=== PATIENT | female | born 1995 | race African-American/Black ===

== ENCOUNTER 2022-06-17 09:56 | Outpatient (CLI) | payer OTHER | END 2022-06-17 09:57 | disposition home or self-care (01) | LOC: CSHLAB 09:56 | PROVIDERS: ATTEND Family Medicine | DX: Z20.822 Contact with and (suspected) exposure to COVID-19 (principal) | CPT/HCPCS: 87811 ==

== ENCOUNTER 2022-06-20 19:30 | Inpatient (IN) | payer OTHER ==
[2022-06-20 22:15] VITALS: BMI 26.6
[2022-06-20] MEDS ORDERED: Promethazine HCl 25 MG/ML VIAL IM PRN (23:20)
[2022-06-20] MEDS ORDERED: Ondansetron PF 4 MG/2 ML Vial IVP PRN (23:20)
[2022-06-20] MEDS ORDERED: Acetaminophen 500 MG TAB PO PRN (23:20)
[2022-06-20] MEDS ORDERED: Lidocaine 1% (PF) 30 ML VIAL SC PRN (23:20)
[2022-06-20] MEDS ORDERED: hydrALAZINE 20 MG/ML VIAL SLOW IVP PRN (23:20)
[2022-06-20] MEDS ORDERED: Butorphanol Tartrate 1 MG/ML VIAL SLOW IVP PRN (23:20)
[2022-06-20] MEDS ORDERED: Diphenoxylate HCl/Atropine Tablet PO PRN ×2 (23:29)
[2022-06-20] MEDS ORDERED: Carboprost 250 MCG/ML AMP IM PRN (23:29)
[2022-06-20] MEDS ORDERED: Misoprostol 200 MCG TAB PR PRN (23:29)
[2022-06-20] MEDS ORDERED: Ibuprofen 800 MG TAB PO PRN (23:29)
[2022-06-20] MEDS ORDERED: Methylergonovine 0.2 MG/ML VIAL IM PRN (23:29)
[2022-06-20] MEDS ORDERED: HYDROcodone/Acetaminophen 5/325 mg Tablet PO PRN ×2 (23:29)
[2022-06-20] MEDS ORDERED: Misoprostol 100 MCG TAB VAG SCH (23:30)
[2022-06-20] MEDS ORDERED: NS w/ Oxytocin 30 units 500 ML IV SCH ×2 (23:30→23:59)
[2022-06-20] MEDS ORDERED: Lactated Ringer's 1,000 ML IV SCH (23:30)
[2022-06-20 23:51] LABS: Hemoglobin 9.3 g/dL (12.0-15.5); Mean Corpuscular HGB CONC 32.2 g/dL (32.0-36.0); Mean Corpuscular Hemoglobin 23.5 pg (27.0-33.0); Mean Corpuscular Volume 73.2 fl (81.6-98.3); Mean Platelet Volume 9.9 fl (7.4-10.4); Platelet Count 334 10x3/uL (150-450); RBC Distribution Width 16.3 % (11.5-14.5); Red Blood Cell (RBC) Count 3.95 10x6/uL (3.90-5.03); White Blood Cell (WBC) Count 7.7 10x3/uL (3.5-10.5)
[2022-06-21 00:23] LABS: HIV (1/2) Antibody/Antigen Non-Reactive (NonReactive); HIV 1/2 INDEX 0.07 S/CO (<1.00); Hep B Surf Ag Non-Reactive S/CO (NonReactive)
[2022-06-21 00:49] LABS: HBSAg Index 0.16 S/CO (0-0.99)
[2022-06-21 02:21] LABS: Syphilis Antibody Index 14.26 S/CO (<1.00 Non-Reactive)
[2022-06-21 02:31] LABS: Syphilis Antibody INDETERMINATE (Nonreactive)
[2022-06-21] MEDS: Oxytocin 10 UNITS/ML VIAL ONE ×2 (04:50→08:37)
[2022-06-21] MEDS: Morphine 4 MG/ML VIAL ONE ×2 (04:55→08:37)
[2022-06-21] MEDS ORDERED: Milk Of Magnesia 30 ML UDCUP PO PRN (07:24)
[2022-06-21] MEDS ORDERED: NS w/ Oxytocin 30 units 500 ML IV SCH (07:24)
[2022-06-21] MEDS ORDERED: Misoprostol 200 MCG TAB VAG PRN (07:24)
[2022-06-21] MEDS ORDERED: Promethazine HCl 25 MG/ML VIAL IM PRN (07:24)
[2022-06-21] MEDS ORDERED: Lanolin Ointment 7 GM TUBE TOP PRN (07:24)
[2022-06-21] MEDS ORDERED: Boostrix 0.5 ML (Tdap) VIAL IM ONE (07:24)
[2022-06-21] MEDS ORDERED: Bisacodyl 10 MG SUPP PR PRN (07:24)
[2022-06-21] MEDS ORDERED: Methylergonovine 0.2 MG/ML VIAL IM PRN (07:24)
[2022-06-21] MEDS ORDERED: hydrALAZINE 20 MG/ML VIAL SLOW IVP PRN (07:24)
[2022-06-21] MEDS ORDERED: Ondansetron PF 4 MG/2 ML Vial IVP PRN (07:24)
[2022-06-21] MEDS: Ferrous Sulfate 325 MG TAB PO SCH ×2 (08:38→13:45)
[2022-06-21] MEDS: Ibuprofen 800 MG TAB PO SCH ×3 (08:38→21:32)
[2022-06-21] MEDS: Docusate 100 MG CAP PO SCH ×2 (08:51→21:32)
[2022-06-21] MEDS: Prenatal Vitamin 1 TAB PO SCH (08:51)
[2022-06-21] MEDS ORDERED: Benzocaine-Menthol 82.5 ML CAN TOP PRN (09:54)
[2022-06-21] MEDS ORDERED: HYDROcodone/Acetaminophen 7.5/325 mg Tablet PO SCH (19:00)
[2022-06-22] MEDS: Ibuprofen 800 MG TAB PO SCH ×3 (05:14→21:12)
[2022-06-22 05:30] LABS: #Eosinphils 0.1 10x3/uL (0.0-0.5); #Monocytes 0.8 10x3/uL (0.0-1.1); #Neutrophils 7.9 10x3/uL (1.5-8.4); %Basophils 0.2 % (0.0-2.0); %Eosinophils 0.6 % (0.0-6.0); %Lymphocytes 25.1 % (18.0-47.0); %Monocytes 6.6 % (0.0-10.0); %Neutrophils 66.4 % (40.0-75.0); Hemoglobin 8.2 g/dL (12.0-15.5); Mean Corpuscular HGB CONC 31.5 g/dL (32.0-36.0); Mean Corpuscular Hemoglobin 23.4 pg (27.0-33.0); Mean Corpuscular Volume 74.1 fl (81.6-98.3); Mean Platelet Volume 10.3 fl (7.4-10.4); Platelet Count 299 10x3/uL (150-450); RBC Distribution Width 16.4 % (11.5-14.5); Red Blood Cell (RBC) Count 3.51 10x6/uL (3.90-5.03); White Blood Cell (WBC) Count 11.9 10x3/uL (3.5-10.5)
[2022-06-22] MEDS: Prenatal Vitamin 1 TAB PO SCH (08:27)
[2022-06-22] MEDS: Ferrous Sulfate 325 MG TAB PO SCH ×2 (08:27→18:01)
[2022-06-22] MEDS: Docusate 100 MG CAP PO SCH ×2 (08:27→21:12)
[2022-06-22] MEDS ORDERED: Witch Hazel-Glycerin 1 EACH JAR TOP PRN (14:04)
[2022-06-23 07:55] VITALS: BP 110/60; TEMP 98.2
[2022-06-23] MEDS: Prenatal Vitamin 1 TAB PO SCH (08:31)
[2022-06-23] MEDS: Ferrous Sulfate 325 MG TAB PO SCH (08:31)
[2022-06-23] MEDS: Docusate 100 MG CAP PO SCH (08:31)
== END 2022-06-23 11:35 | disposition home or self-care (01) | DRG 806 ==
LOC: CSHLD 21:12 → CSHPP 06-21 08:21
PROVIDERS: ADMIT Student in an Organized Health Care Education/Training Program; ATTEND Student in an Organized Health Care Education/Training Program
PROC: 10E0XZZ Delivery of Products of Conception, External Approach (ICD-10-PCS; principal; 2022-06-21)
DX: O24.420 Gestational diabetes mellitus in childbirth, diet controlled (principal); O87.2 Hemorrhoids in the puerperium; Z37.0 Single live birth; Z3A.39 39 weeks gestation of pregnancy; D50.9 Iron deficiency anemia, unspecified; O99.02 Anemia complicating childbirth; Z28.21 Immunization not carried out because of patient refusal; F17.210 Nicotine dependence, cigarettes, uncomplicated; O99.334 Smoking (tobacco) complicating childbirth; Z71.6 Tobacco abuse counseling; F39 Unspecified mood [affective] disorder; O99.344 Other mental disorders complicating childbirth; Z20.822 Contact with and (suspected) exposure to COVID-19
CPT/HCPCS: 36415; 36416; 85025; 85027; 86593; 86780; 86850; 86900; 86901; 87340; 87389; 88307; J2270; J2590; J7120

== ENCOUNTER 2023-09-24 05:57 | Emergency (ER) | payer OTHER, SELFPAY ==
[2023-09-24 07:49] LABS: Acetaminophen Less than 10 mcg/mL (10.0-30.0); Alcohol Less than 10.0 mg/dL (Less than 10); Salicylate Less than 8.0 mg/dL (15.0-30.0)
[2023-09-24 07:56] LABS: Bilirubin Neg (Negative); Blood, Urine 10 (Negative); Clarity Slightly Cloudy (Clear); Glucose, Urine (Dipstick) Normal (Negative); Ketone, Urine Negative (Negative); Leukocyte 100 (Negative); Nitrite Negative (Negative); Protein, Urine (Dipstick) 30 mg/dl (Neg-Trace); Specific Gravity, Urine 1.015 (1.005-1.030)
[2023-09-24 08:24] LABS: Pregnancy Test - Urine (BHCG) POSITIVE (Negative); Pregu Control Background? CLEAR/WHITE (CLR/WHITE); Pregu Control Bar Appear? YES (CONTROL BAR); Specific Gravity 1.015 (1.002-1.036)
[2023-09-24 08:33] LABS: Amphetamine Not Detected (NotDetected); Barbiturates Screen Not Detected (NotDetected); Benzodiazepine Screen Not Detected (NotDetected); Cocaine Metabolite Screen Not Detected (NotDetected); Methadone Not Detected (NotDetected); Methamphetamine Not Detected (NotDetected); Opiate Screen Not Detected (NotDetected); Oxycodone Screen Not Detected (NotDetected); Phencyclidine (PCP) Not Detected (NotDetected); THC/Cannabinoid Screen Detected (NotDetected); Tricyclic Screen Not Detected (NotDetected)
[2023-09-24 08:37] LABS: Bacteria/HPF 4+ HPF (None Seen); CAUTI Indications for Culture Dysuria,urgency,freq; Mucous/LPF 3+ LPF (<2+); RBC/HPF 0-3 HPF (0-3); Squamous Epithelial 0-3 HPF (0-3); WBC/HPF 21-50 HPF (0-3)
== END 2023-09-24 09:04 | disposition home or self-care (01) ==
LOC: CSHERS 05:57
DX: Z33.1 Pregnant state, incidental (principal); F17.210 Nicotine dependence, cigarettes, uncomplicated
CPT/HCPCS: 36415; 80306; 80307; 81025; 99284

== ENCOUNTER 2023-10-10 19:54 | Emergency (ER) | payer SELFPAY ==
[2023-10-10] MEDS ORDERED: Ondansetron PF 4 MG/2 ML Vial ONE (21:15)
[2023-10-10 21:45] LABS: #Eosinphils 0.1 10x3/uL (0.0-0.5); #Monocytes 0.7 10x3/uL (0.0-1.1); #Neutrophils 5.4 10x3/uL (1.5-8.4); %Basophils 0.4 % (0.0-2.0); %Eosinophils 1.2 % (0.0-6.0); %Lymphocytes 24.2 % (18.0-47.0); %Monocytes 8.2 % (0.0-10.0); %Neutrophils 65.8 % (40.0-75.0); Hemoglobin 11.4 g/dL (12.0-15.5); Mean Corpuscular HGB CONC 33.5 g/dL (32.0-36.0); Mean Corpuscular Hemoglobin 26.3 pg (27.0-33.0); Mean Corpuscular Volume 78.3 fl (81.6-98.3); Mean Platelet Volume 9.3 fl (7.4-10.4); Platelet Count 407 10x3/uL (150-450); RBC Distribution Width 16.1 % (11.5-14.5); Red Blood Cell (RBC) Count 4.34 10x6/uL (3.90-5.03); White Blood Cell (WBC) Count 8.2 10x3/uL (3.5-10.5)
[2023-10-10 21:57] LABS: ALT (SGPT) 15 U/L (8-55); AST (SGOT) 19 U/L (5-34); Albumin 4.3 g/dL (3.5-5.0); Alkaline Phosphatase 39 U/L (40-110); Anion Gap 14 mmol/L (10-20); BUN (Urea Nitrogen) 7 mg/dL (7.0-18.7); Bilirubin, Total 0.7 mg/dL (0.2-1.2); Calc. Creatinine Clearance 0 mL/min (70-130); Calcium 9.1 mg/dL (7.8-10.44); Carbon Dioxide 21 mmol/L (22-29); Chloride 105 mmol/L (98-107); Estimated GFR 124; Globulin 4.2 g/dL (2.4-3.5); Glucose 81 mg/dL (70-105); Potassium 3.6 mmol/L (3.5-5.1); Protein, Total 8.5 g/dL (6.0-8.3); Sodium 136 mmol/L (136-145)
== END 2023-10-10 22:40 | disposition home or self-care (01) ==
LOC: CSHERS 19:54
DX: O21.0 Mild hyperemesis gravidarum (principal); O99.331 Smoking (tobacco) complicating pregnancy, first trimester; F17.210 Nicotine dependence, cigarettes, uncomplicated; Z3A.08 8 weeks gestation of pregnancy
CPT/HCPCS: 80053; 84702; 85025; 96361; 96374; J2405

== ENCOUNTER 2024-01-25 20:04 | Emergency (ER) | payer OTHER | END 2024-01-25 21:50 | disposition home or self-care (01) | LOC: CSHERS 20:04 | DX: K08.89 Other specified disorders of teeth and supporting structures (principal); K03.81 Cracked tooth; F17.210 Nicotine dependence, cigarettes, uncomplicated | CPT/HCPCS: 40804; 99282 ==

== ENCOUNTER 2024-03-25 00:53 | Inpatient (IN) | payer OTHER ==
[2024-03-25 01:46] VITALS: BMI 25.7
[2024-03-25] MEDS ORDERED: hydrALAZINE 20 MG/ML VIAL SLOW IVP PRN (02:05)
[2024-03-25 02:07] LABS: Fetal Membranes Rupture RUPTURE DETECTED (No Rupture)
[2024-03-25] MEDS ORDERED: Misoprostol 200 MCG TAB PR PRN (02:33)
[2024-03-25] MEDS ORDERED: Diphenoxylate HCl/Atropine Tablet PO PRN (02:33)
[2024-03-25] MEDS ORDERED: Carboprost 250 MCG/ML AMP IM PRN (02:33)
[2024-03-25] MEDS ORDERED: Docusate 100 MG CAP PO PRN (02:33)
[2024-03-25] MEDS ORDERED: Methylergonovine 0.2 MG/ML VIAL IM PRN (02:33)
[2024-03-25] MEDS ORDERED: Promethazine HCl 25 MG/ML VIAL IM PRN (02:33)
[2024-03-25] MEDS ORDERED: Tranexamic Acid 1,000 MG/10 ML VIAL IVP PRN (02:33)
[2024-03-25] MEDS ORDERED: Acetaminophen 500 MG TAB PO PRN ×2 (02:33→12:22)
[2024-03-25] MEDS ORDERED: Lidocaine 1% (PF) 30 ML VIAL SC PRN (02:36)
[2024-03-25] MEDS ORDERED: Oxytocin 30 units/NS 500 ML 500 ML IV SCH (02:45)
[2024-03-25 03:32] LABS: Hematocrit 31.6 % (34.9-44.5); Hemoglobin 10.9 g/dL (12.0-15.5); Mean Corpuscular HGB CONC 34.5 g/dL (32.0-36.0); Mean Corpuscular Hemoglobin 28.5 pg (27.0-33.0); Mean Corpuscular Volume 82.5 fl (81.6-98.3); Mean Platelet Volume 9.7 fl (7.4-10.4); Platelet Count 326 10x3/uL (150-450); RBC Distribution Width 15.1 % (11.5-14.5); Red Blood Cell (RBC) Count 3.83 10x6/uL (3.90-5.03)
[2024-03-25 03:59] LABS: Glucose 77 mg/dL (70-105)
[2024-03-25 04:09] LABS: Hep B Surf Ag - L&D Non-Reactive S/CO (NonReactive)
[2024-03-25 05:40] LABS: Syphilis Antibody Index 6.46 S/CO (<1.00 Non-Reactive)
[2024-03-25 06:05] LABS: Syphilis Antibody INDETERMINATE (Nonreactive)
[2024-03-25] MEDS: Oxytocin 30 units/NS 500 ML 500 ML ONE (07:56)
[2024-03-25] MEDS: Penicillin G Potassium 5 MILL.UNITS VIAL ONE (07:56)
[2024-03-25] MEDS: Azithromycin 500 MG VIAL ONE (09:11)
[2024-03-25] MEDS: Betamet Acet/Betamet Na Ph 30 MG/5 ML VIAL ONE (09:11)
[2024-03-25] MEDS: Terbutaline Sulfate 1 MG/ML VIAL ONE (13:01)
[2024-03-25] MEDS: Ampicillin 2 GM in Sodium Chloride 0.9% 100 ML IVPB SCH (13:41)
[2024-03-25] MEDS: HumaLOG 300 UNITS/3 ML VIAL SC SCH ×3 (16:25→22:35)
[2024-03-25] MEDS: Ferrous Sulfate 325 MG TAB PO SCH (18:47)
[2024-03-26] MEDS ORDERED: Dextrose 50% Abboject 50 ML SYRINGE SLOW IVP PRN (08:19)
[2024-03-26] MEDS ORDERED: Dextrose 5% in Water 1,000 ML IV PRN (08:19)
[2024-03-26] MEDS ORDERED: Glucagon 1 MG/ML KIT IM PRN (08:19)
[2024-03-26] MEDS: HumaLOG 300 UNITS/3 ML VIAL SC PRN (11:09)
[2024-03-26 13:12] LABS: Group B Streptococcus by PCR Not Detected (NotDetected)
[2024-03-26] MEDS: HumaLOG 300 UNITS/3 ML VIAL SC SCH (17:20)
[2024-03-26 17:22] LABS: Bilirubin Neg (Negative); Blood, Urine Negative (Negative); Clarity Clear (Clear); Glucose, Urine (Dipstick) Normal (Negative); Ketone, Urine Negative (Negative); Leukocyte Negative (Negative); Nitrite Negative (Negative); Protein, Urine (Dipstick) Negative (Neg-Trace); Urobilinogen Normal mg/dL (Less than 2)
[2024-03-26 18:35] LABS: Bacteria/HPF 1+ HPF (None Seen); RBC/HPF 0-3 HPF (0-3); WBC/HPF 0-3 HPF (0-3)
[2024-03-26] MEDS: Lantus 1000 UNITS/10 ML VIAL SC SCH (22:43)
[2024-03-26] MEDS: Ondansetron PF 4 MG/2 ML Vial IVP PRN (22:44)
[2024-03-27] MEDS: HumaLOG 300 UNITS/3 ML VIAL SC SCH ×2 (07:30→09:43)
[2024-03-27] MEDS ORDERED: AMOXicillin 500 MG CAP PO SCH (09:00)
[2024-03-27] MEDS: AMOXicillin 250 MG CAP PO SCH (09:43)
[2024-03-27] MEDS: Calcium Carbonate 500 MG ChewTAB PO SCH (17:15)
== END 2024-03-27 18:40 | disposition home or self-care (01) | DRG 833 ==
LOC: CSHLD/OP 00:53 → CSHLD 02:33
PROVIDERS: ADMIT Family Medicine; ATTEND Family Medicine
DX: O46.93 Antepartum hemorrhage, unspecified, third trimester (principal); Z3A.32 32 weeks gestation of pregnancy; Z91.040 Latex allergy status
CPT/HCPCS: 36416; 76816; 81001; 82947; 84112; 85027; 86593; 86780; 86850; 86900; 86901; 87340; 87653; 99285; J0290; J0456; J0702; J1815; J2405; J2540; J2590; J3490

== ENCOUNTER 2024-04-22 14:34 | Emergency (ER) | payer OTHER ==
[2024-04-22] MEDS ORDERED: Metoclopramide HCl 10 MG (2 mL) VIAL ONE (15:14)
[2024-04-22 15:43] LABS: #Basophils 0.02 10x3/uL (0.0-0.2); #Eosinphils 0.07 10x3/uL (0.0-0.5); #Monocytes 0.54 10x3/uL (0.0-1.1); #Neutrophils 4.49 10x3/uL (1.5-8.4); %Basophils 0.3 % (0.0-2.0); %Eosinophils 0.9 % (0.0-6.0); %Monocytes 7.1 % (0.0-10.0); %Neutrophils 58.8 % (40.0-75.0); Hematocrit 32.9 % (34.9-44.5); Hemoglobin 10.9 g/dL (12.0-15.5); Mean Corpuscular HGB CONC 33.1 g/dL (32.0-36.0); Mean Corpuscular Hemoglobin 28.5 pg (27.0-33.0); Mean Corpuscular Volume 85.9 fL (81.6-98.3); Mean Platelet Volume 8.9 fL (7.4-10.4); Platelet Count 484 10x3/uL (150-450); RBC Distribution Width 16.2 % (11.5-14.5); Red Blood Cell (RBC) Count 3.83 10x6/uL (3.90-5.03); White Blood Cell (WBC) Count 7.6 10x3/uL (3.5-10.5)
[2024-04-22 15:58] LABS: ALT (SGPT) 15 U/L (8-55); AST (SGOT) 16 U/L (5-34); Albumin 3.5 g/dL (3.5-5.0); Alkaline Phosphatase 67 U/L (40-110); Anion Gap 14 mmol/L (10-20); BUN (Urea Nitrogen) 17 mg/dL (7.0-18.7); Bilirubin, Total 0.3 mg/dL (0.2-1.2); Calc. Creatinine Clearance 0 mL/min (70-130); Calcium 9.1 mg/dL (7.8-10.44); Carbon Dioxide 25 mmol/L (22-29); Chloride 103 mmol/L (98-107); Estimated GFR 108; Glucose 82 mg/dL (70-105); Protein, Total 7.5 g/dL (6.0-8.3); Sodium 138 mmol/L (136-145)
[2024-04-22] MEDS ORDERED: Acetaminophen 325 MG TAB ONE (16:49)
[2024-04-22 18:16] LABS: Bilirubin Neg (Negative); Blood, Urine 250 (Negative); Clarity Clear (Clear); Glucose, Urine (Dipstick) Normal (Negative); Ketone, Urine Negative (Negative); Leukocyte 25 (Negative); Nitrite Negative (Negative); Protein, Urine (Dipstick) 30 mg/dl (Neg-Trace); Specific Gravity, Urine 1.005 (1.005-1.030); Urobilinogen Normal mg/dL (Less than 2)
[2024-04-22 18:24] LABS: CAUTI Indications for Culture Pelvic or flank pain; RBC/HPF 21-50 HPF (0-3); Squamous Epithelial 0-3 HPF (0-3)
[2024-04-22 18:31] LABS: Bacteria/HPF 2+ HPF (None Seen)
[2024-04-22 18:33] LABS: Urine Culture Reflex No No
== END 2024-04-22 18:40 | disposition home or self-care (01) ==
LOC: CSHERS 14:34
DX: O86.20 Urinary tract infection following delivery, unspecified (principal); N39.0 Urinary tract infection, site not specified; O90.89 Other complications of the puerperium, not elsewhere classified; G44.209 Tension-type headache, unspecified, not intractable; F17.290 Nicotine dependence, other tobacco product, uncomplicated
CPT/HCPCS: 36415; 70450; 80053; 81001; 85025; 93005; 96365; J2765

== ENCOUNTER 2025-08-03 22:48 | Emergency (ER) | payer OTHER, SELFPAY ==
[~2025-08-03 22:48] MED LIST: Iopamidol 300 61% 100 ML VIAL FS ONE
[2025-08-03 23:35] LABS: #Basophils 0.04 10x3/uL (0.0-0.2); #Eosinophils 0.07 10x3/uL (0.0-0.5); #Monocytes 0.51 10x3/uL (0.0-1.1); #Neutrophils 3.21 10x3/uL (1.5-8.4); %Basophils 0.6 % (0.0-2.0); %Eosinophils 1.1 % (0.0-6.0); %Lymphocytes 40.5 % (18.0-47.0); %Monocytes 7.9 % (0.0-10.0); %Neutrophils 49.7 % (40.0-75.0); Hematocrit 30.8 % (34.9-44.5); Hemoglobin 10.1 g/dL (12.0-15.5); Mean Corpuscular Hemoglobin 25.8 pg (27.0-33.0); Mean Corpuscular Volume 78.6 fL (81.6-98.3); Platelet Count 453 10x3/uL (150-450); Red Blood Cell (RBC) Count 3.92 10x6/uL (3.90-5.03); White Blood Cell (WBC) Count 6.45 10x3/uL (3.5-10.5)
[2025-08-03] MEDS ORDERED: Ondansetron PF 4 MG/2 ML Vial ONE (23:35)
[2025-08-03] MEDS ORDERED: Ketorolac Tromethamine 30 MG (1 mL) VIAL ONE (23:35)
[2025-08-03 23:36] LABS: Glucose, Urine (Dipstick) Normal (Negative); Leukocyte 500 (Negative); Protein, Urine (Dipstick) 100 mg/dl (Neg-Trace); Specific Gravity, Urine 1.025 (1.005-1.030)
[2025-08-03 23:43] LABS: Bacteria/HPF None Seen HPF (None Seen); CAUTI Indications for Culture Dysuria,urgency,freq; RBC/HPF 0-3 HPF (0-3); WBC/HPF Greater than 50 HPF (0-3)
[2025-08-03 23:44] LABS: Urine Culture Reflex Yes Yes
[2025-08-03 23:45] LABS: BHCG - Serum Negative (NEGATIVE); Pregs Control Background? CLEAR/WHITE (CLR/WHITE); Pregs Control Bar Appear? YES (CONTROL BAR)
[2025-08-03 23:50] LABS: ALT (SGPT) 14 U/L (Less than 34); AST (SGOT) 25 U/L (11-34); Albumin 4.6 g/dL (3.1-4.5); Alkaline Phosphatase 35 U/L (40-110); Anion Gap 14 mmol/L (10-20); BUN (Urea Nitrogen) 11 mg/dL (7.0-18.7); Bilirubin, Total 0.5 mg/dL (0.3-1.2); Calc. Creatinine Clearance 0 mL/min (70-130); Calcium 9.2 mg/dL (7.8-10.44); Carbon Dioxide 22 mmol/L (22-29); Chloride 106 mmol/L (98-107); Globulin 4.0 g/dL (2.4-3.5); Glucose 122 mg/dL (70-105); Lipase 23 U/L (8-78); Potassium 3.5 mmol/L (3.5-5.1); Sodium 138 mmol/L (136-145)
[2025-08-04] MEDS ORDERED: Cephalexin 250 MG CAP ONE (00:47)
== END 2025-08-04 00:48 | disposition home or self-care (01) ==
LOC: CSHERS 22:48
DX: N39.0 Urinary tract infection, site not specified (principal); F17.290 Nicotine dependence, other tobacco product, uncomplicated; F17.210 Nicotine dependence, cigarettes, uncomplicated
CPT/HCPCS: 74177; 80053; 81001; 83690; 84703; 85025; 87086; 96374; 96375; J1885; J2405; Q9967